=== PATIENT | male | born 1995 | race Caucasian/White ===

== ENCOUNTER 2016-12-14 15:34 | Emergency (ER) | payer SELFPAY ==
[2016-12-14 16:03] VITALS: TEMP 97.8; BMI 25.8
[2016-12-14 16:21] LABS: AUTOMATED BASOPHIL 0.3 % (0-2); AUTOMATED LYMPH 13.3 % (17-44); AUTOMATED MONOCYTE 2.9 % (3-10); AUTOMATED NEUTROPHIL 81.5 % (45-76); MPV 8.7 fL (7.4-10.4)
[2016-12-14 16:31] LABS: BLOOD UREA NITROGEN 10 MG/DL (9-20); CALCULATED OSMOLALITY 269 MOs/Kg (270-290); CHLORIDE 103 mEq/L (98-107); ETOH-MGDL < 10 mg/dL; GLUCOSE 89 MG/DL (70-99); SODIUM LEVEL 141 mEq/L (137-146); TOTAL PROTEIN 7.5 G/DL (6.3-8.2)
[2016-12-14 16:54] LABS: ALL NEG? NO
[2016-12-14 17:02] LABS: METHAMPHETAMINES NEG (NEGATIVE)
[2016-12-14 17:03] LABS: MDMA* NEG (NEGATIVE); OXYCODONE *POSITIVE* (NEGATIVE)
[2016-12-14 17:11] LABS: LEUKOCYTES/URINE NEG (NEGATIVE); NITRITE/URINE NEG (NEGATIVE); URINE OCCULT BLOOD NEG (NEG/TRACE); WBC/URINE 0-2 (0-2)
--- NOTE | 2016-12-14 18:38 | EDPRACDOC ---
- General Information Chief Complaint: Psychiatric Illness Stated Complaint: PYSCH IVC Time Seen by Provider: 12/14/16 16:51 Information Source: Patient Mode of Arrival: Law Enforcement Home Medications: Home Medications No Home Medications 12/14/16 Allergies/Adverse Reactions: Allergies Allergy/AdvReac Type Severity Reaction Status Date / Time No Known Allergies Allergy Verified 12/14/16 16:07 - History of Present Illness HPI: C/o being IVC by mother for polysubstance abuse. Mom is afraid pt will overdose and . pt states that he wants to detox and has bed arranged in [facility] in [place]. Denies SI, HI, depression. Admits to regular use of multiple drugs but mostly oxycodones. Last use was last night for cocaine and percocets. Med hx = none. Pt has no physical complaints at this time. Presents With: Reports: None Expresses: Reports: None Suicidal Plan: Reports: None Suicidal Attempt: Reports: N Stressors: Reports: None Relevant History: Reports: None Able to Care for Self: Yes Able to Control Self: Yes Associated Signs and Symptoms: Reports: Cocaine, Other (opiates) ED Past Medical History - History Reviewed Yes Nurses notes reviewed and agree except as marked - Patient Medical History Psychological History: Reports: Depression Systemic History: Denies: Cancer - Social Medical History Smoking Status: Heavy tobacco smoker (5 or more cigarettes/day or daily pipe/ cigar) EDM Review of Systems - Review of Systems ROS Negative Except as Marked: Yes All systems reviewed and were negative except as marked ROS Comments: polysubstance abuse. - Physical Exam Constitutional: No apparent distress, Alert Oriented to: Time, Person, Place Last recorded Vital Signs: Last Vital Signs Temp 97.8 F 12/14/16 15:58 Pulse 81 12/14/16 16:03 Resp 18 12/14/16 16:03 BP 146/93 12/14/16 16:03 Pulse Ox 96 12/14/16 16:03 Oxygen Pulse Oxygen Saturation 96 O2 Device Room Air Oxygen Flow Rate Fraction of Inspired Oxygen ( FIO2) - HEENT Head: Normal Eye Exam: negative: Conjunctival Injection, Scleral Icterus Oropharynx: negative: Drooling TMJ: Normal Nose: No Symptoms Reported Neck: Normal - Respiratory/Cardiovascular Respiratory: Normal - CTA Cardiovascular: Normal - GI Auscultation: Normal Palpation: Normal Tenderness: Non tender - Musculoskeletal Back: Normal Extremities: Normal - Integumentary Skin: Normal - Neurologic Mood Description: Normal Thought: Coherent Perception: Normal Initial Evaluation Apperance: Neat Attitude: Cooperative Mood: Euthymic Affect: Congruent w/ mood Insight: Good Judgement: Good Memory Description: Intact Delusion Description: Reports: Not Present Hallucination Type: Reports: None Hallucinations Severity: Reports: None Hallucinations affecting more than one sensory system: No Recommend /or Refer: Outpatient Therapy - Results 12/14/16 16:06 12/14/16 16:06 WBC 13.3 xk/uL (3.8-10.8) H 12/14/16 16:06 RBC 5.13 xM/uL (4.70-6.10) 12/14/16 16:06 Hgb 15.3 g/dL (14.0-18.0) 12/14/16 16:06 Hct 44.9 % (42-52) 12/14/16 16:06 MCV 88 fL (80-94) 12/14/16 16:06 MCH 29.8 pg (27-32) 12/14/16 16:06 MCHC 34.0 g/dl (33-36) 12/14/16 16:06 RDW 12.8 % (11.5-14.5) 12/14/16 16:06 Plt Count 283 xk/uL (130-400) 12/14/16 16:06 MPV 8.7 fL (7.4-10.4) 12/14/16 16:06 Neut % (Auto) 81.5 % (45-76) H 12/14/16 16:06 Lymph % (Auto) 13.3 % (17-44) L 12/14/16 16:06 [place] % (Auto) 2.9 % (3-10) L 12/14/16 16:06 Eos % (Auto) 2.0 % (0-5) 12/14/16 16:06 Baso % (Auto) 0.3 % (0-2) 12/14/16 16:06 Absolute Neuts (auto) 10.77 xk/uL (1.7-8.2) H 12/14/16 16:06 Absolute Lymphs (auto) 1.73 xk/uL (0.65-4.75) 12/14/16 16:06 Sodium 141 mEq/L (137-146) 12/14/16 16:06 Potassium 4.6 mEq/L (3.5-5.1) 12/14/16 16:06 Chloride 103 mEq/L (98-107) 12/14/16 16:06 Carbon Dioxide 29 mMOL/L (22-33) 12/14/16 16:06 Anion Gap 14 mEq/L (8-16) 12/14/16 16:06 BUN 10 MG/DL (9-20) 12/14/16 16:06 Creatinine 0.80 MG/DL (0.66-1.25) 12/14/16 16:06 Estimated GFR (MDRD) > 60 mL/min (>=60) 12/14/16 16:06 Glucose 89 MG/DL (70-99) 12/14/16 16:06 Calculated Osmolality 269 MOs/Kg (270-290) L 12/14/16 16:06 Calcium 10.0 MG/DL (8.4-10.2) 12/14/16 16:06 Total Bilirubin 1.0 MG/DL (0.2-1.3) 12/14/16 16:06 AST 15 IU/L (17-59) L 12/14/16 16:06 ALT 25 IU/L (21-72) 12/14/16 16:06 Alkaline Phosphatase 102 IU/L (38-126) 12/14/16 16:06 Total Protein 7.5 G/DL (6.3-8.2) 12/14/16 16:06 Albumin 4.4 G/DL (3.5-5.0) 12/14/16 16:06 Urine Color Yellow 12/14/16 16:50 Urine Clarity Clear 12/14/16 16:50 Urine pH 5.0 (5.0-8.0) 12/14/16 16:50 Ur Specific [place] 1.005 (1.003-1.035) 12/14/16 16:50 Urine Protein Neg (NEG/TRACE) 12/14/16 16:50 Urine Glucose (UA) Neg (NEGATIVE) 12/14/16 16:50 Urine Ketones Neg (NEGATIVE) 12/14/16 16:50 Urine Occult Blood Neg (NEG/TRACE) 12/14/16 16:50 Urine Nitrite Neg (NEGATIVE) 12/14/16 16:50 Urine Bilirubin Neg (NEGATIVE) 12/14/16 16:50 Urine Urobilinogen <2.0 MG/DL (0-1) 12/14/16 16:50 Ur Leukocyte Esterase Neg (NEGATIVE) 12/14/16 16:50 Urine WBC 0-2 (0-2) 12/14/16 16:50 Ur Epithelial Cells Occ 12/14/16 16:50 Urine Bacteria Few (NEG/FEW) 12/14/16 16:50 Hyaline Casts 0-2 (0-2) 12/14/16 16:50 Urine Mucus Occ (NEG/OCC) 12/14/16 16:50 Urine Opiates Screen *positive* (NEGATIVE) H 12/14/16 16:50 Ur Oxycodone Screen *positive* (NEGATIVE) H 12/14/16 16:50 Urine Methadone Screen Neg (NEGATIVE) 12/14/16 16:50 Ur Barbiturates Screen Neg (NEGATIVE) 12/14/16 16:50 Ur Tricyclics Screen Neg (NEGATIVE) 12/14/16 16:50 Ur Phencyclidine Scrn Neg (NEGATIVE) 12/14/16 16:50 Ur Amphetamines Screen Neg (NEGATIVE) 12/14/16 16:50 U Methamphetamines Scrn Neg (NEGATIVE) 12/14/16 16:50 Urine MDMA Screen Neg (NEGATIVE) 12/14/16 16:50 U Benzodiazepines Scrn Neg (NEGATIVE) 12/14/16 16:50 Urine Cocaine Screen *positive* (NEGATIVE) H 12/14/16 16:50 Ur THC Screen Neg (NEGATIVE) 12/14/16 16:50 Plasma/Serum Ethyl Alc % (<0.01) 12/14/16 16:06 Lab Results 12/14/16 12/14/16 12/14/16 16:50 16:50 16:06 WBC 13.3 H RBC 5.13 Hgb 15.3 Hct 44.9 MCV 88 MCH 29.8 MCHC 34.0 RDW 12.8 Plt Count 283 MPV 8.7 Neut % (Auto) 81.5 H Lymph % (Auto) 13.3 L [place] % (Auto) 2.9 L Eos % (Auto) 2.0 Baso % (Auto) 0.3 Absolute Neuts (auto) 10.77 H Absolute Lymphs (auto) 1.73 Sodium Potassium Chloride Carbon Dioxide Anion Gap BUN Creatinine Estimated GFR (MDRD) Glucose Calculated Osmolality Calcium Total Bilirubin AST ALT Alkaline Phosphatase Total Protein Albumin Urine Color Yellow Urine Clarity Clear Urine pH 5.0 Ur Specific [place] 1.005 Urine Protein Neg Urine Glucose (UA) Neg Urine Ketones Neg Urine Occult Blood Neg Urine Nitrite Neg Urine Bilirubin Neg Urine Urobilinogen <2.0 Ur Leukocyte Esterase Neg Urine WBC 0-2 Ur Epithelial Cells Occ Urine Bacteria Few Hyaline Casts 0-2 Urine Mucus Occ Urine Opiates Screen *positive* H Ur Oxycodone Screen *positive* H Urine Methadone Screen Neg Ur Barbiturates Screen Neg Ur Tricyclics Screen Neg Ur Phencyclidine Scrn Neg Ur Amphetamines Screen Neg U Methamphetamines Scrn Neg Urine MDMA Screen Neg U Benzodiazepines Scrn Neg Urine Cocaine Screen *positive* H Ur THC Screen Neg Plasma/Serum Ethyl Alc 12/14/16 16:06 WBC RBC Hgb Hct MCV MCH MCHC RDW Plt Count MPV Neut % (Auto) Lymph % (Auto) [place] % (Auto) Eos % (Auto) Baso % (Auto) Absolute Neuts (auto) Absolute Lymphs (auto) Sodium 141 Potassium 4.6 Chloride 103 Carbon Dioxide 29 Anion Gap 14 BUN 10 Creatinine 0.80 Estimated GFR (MDRD) > 60 Glucose 89 Calculated Osmolality 269 L Calcium 10.0 Total Bilirubin 1.0 AST 15 L ALT 25 Alkaline Phosphatase 102 Total Protein 7.5 Albumin 4.4 Urine Color Urine Clarity Urine pH Ur Specific [place] Urine Protein Urine Glucose (UA) Urine Ketones Urine Occult Blood Urine Nitrite Urine Bilirubin Urine Urobilinogen Ur Leukocyte Esterase Urine WBC Ur Epithelial Cells Urine Bacteria Hyaline Casts Urine Mucus Urine Opiates Screen Ur Oxycodone Screen Urine Methadone Screen Ur Barbiturates Screen Ur Tricyclics Screen Ur Phencyclidine Scrn Ur Amphetamines Screen U Methamphetamines Scrn Urine MDMA Screen U Benzodiazepines Scrn Urine Cocaine Screen Ur THC Screen Plasma/Serum Ethyl Alc - Additional Information Additional Information: pt states he will check himself into detox center. has bed arranged in [place] Decision Time to Discharge: 18:36 - Departure Disposition: Home Condition: Stable Final Diagnosis: Polysubstance abuse Instructions: Narcotic Abuse (GEN), Abuse of Alcohol (ED), Polysubstance Abuse (ED) Education/Counseling Given To: Patient, Family Member Education/Counseling Given Regarding: Diagnosis, Treatment, Prognosis, Follow Up Referrals: None,No Provider [Primary Care Provider] - One Week Ariel Johansen MD [Staff Physician] - One Week Prescriptions: No Action No Home Medications 0 NA DIR #0 info Additional Instructions: Return to ED for new or worsening symptoms.
[2016-12-14 19:06] VITALS: BP 138/87; PULSE 86
== END 2016-12-14 18:55 | disposition home or self-care (01) ==
LOC: ED 15:34
DX: F19.10 Other psychoactive substance abuse, uncomplicated (principal)
CPT/HCPCS: 36415; 80053; 80307; 81001; 85025; 86592; 99283